=== PATIENT | female | born 1980 | race Caucasian/White ===

== ENCOUNTER 2019-09-27 14:55 | Inpatient (IN) | payer OTHER ==
[~2019-09-27] VITALS: Ht 160 cm; Wt 77.1 kg
[~2019-09-27 14:55] MED LIST: DSS100 PO; IBUP-2070 PO; PREN-64 PO
[2019-09-27 15:16] VITALS: BP 128/81
[2019-09-27] MEDS ORDERED: PREN-217 PO (15:20)
[2019-09-27] MEDS ORDERED: FERR-89 PO (15:20)
[2019-09-27] MEDS ORDERED: RINGERS SOLUTION,LACTATED 1,000 ML IV PRN (15:40)
[2019-09-27] MEDS ORDERED: OXYTOCIN 30 UNITS/LACT RINGERS 500 ML IV ONE ×2 (15:40→18:50)
[2019-09-27] MEDS ORDERED: LIDOCAINE/PF 1% 30 ML VIAL INJ PRN ×2 (15:45→19:00)
[2019-09-27] MEDS ORDERED: FentaNYL CITRATE-PF 100 MCG/2 ML VIAL IVP PRN (15:45)
[2019-09-27] MEDS ORDERED: CITRIC ACID/SODIUM CITRATE 30 ML SOLUTION UDCUP PO PRN (15:45)
[2019-09-27] MEDS ORDERED: METOCLOPRAMIDE HCL 5 MG/ML 2 ML VIAL IVP PRN (15:45)
[2019-09-27] MEDS ORDERED: METHYLERGONOVINE MALEATE 0.2 MG/ML VIAL IM PRN (15:45)
[2019-09-27] MEDS ORDERED: OXYTOCIN 30 UNITS/LACT RINGERS 500 ML IV PRN (16:14)
[2019-09-27 16:26] LABS: BASOPHILS % (AUTO) 0.6 % (0.0-2.0); EOSINOPHILS % (AUTO) 0.2 % (1.0-6.0); HEMATOCRIT 38.1 % (36-46); HEMOGLOBIN 12.3 g/dL (12.0-16.0); LYMPHOCYTES # (AUTO) 1.6 K/uL (1.0-4.8); LYMPHOCYTES % (AUTO) 14.4 % (22.0-44.0); MEAN CORPUSCULAR HEMOGLOBIN 27.4 pg (26.0-34.0); MEAN CORPUSCULAR HGB CONC 32.4 G/dL (31.0-37.0); MEAN CORPUSCULAR VOLUME 85 fL (80-100); MONOCYTES # (AUTO) 0.9 K/uL (0.1-1.0); MONOCYTES % (AUTO) 7.9 % (2.0-9.0); NEUTROPHILS # (AUTO) 8.6 K/uL (1.8-7.7); NEUTROPHILS % (AUTO) 76.9 % (40.0-70.0); PLATELET COUNT (AUTO)-OB 206 K/uL (150-450); RED BLOOD CELL COUNT(AUTO) 4.51 MIL/uL (4.00-5.20); RED CELL DISTRIBUTION WIDTH 16.1 % (11.5-14.5)
[2019-09-27] MEDS ORDERED: ROPIVACAINE HCL/PF 0.2% 100 ML ED PRN (16:44)
[2019-09-27] MEDS ORDERED: ROPIVACAINE HCL/PF 0.2% 100 ML ED ONE (16:56)
[2019-09-27] MEDS ORDERED: LIDOCAINE/PF 2% 5 ML VIAL ONE (16:57)
[2019-09-27] MEDS: RINGERS SOLUTION,LACTATED 1,000 ML IV SCH ×2 (18:06→18:10)
[2019-09-27] MEDS ORDERED: OxyCODONE HCL/ACETAMINOPHEN 5-325 MG TABLET PO PRN ×2 (19:00)
[2019-09-27] MEDS ORDERED: GLYCERIN/WITCH HAZEL LEAF 40 PADS JAR TP PRN (19:00)
[2019-09-27] MEDS ORDERED: LANOLIN 7 GM OINTMENT TP PRN (19:00)
[2019-09-27] MEDS ORDERED: BENZOCAINE 20%/MENTHOL 56 GM SPRAY CANISTER TP PRN (19:00)
[2019-09-27] MEDS ORDERED: MAGNESIUM HYDROXIDE SUSPENSION 30 ML UDCUP PO PRN (19:00)
[2019-09-27] MEDS ORDERED: OXYGEN THERAPY IH SCH (20:00)
[2019-09-27] MEDS: IBUPROFEN 800 MG TABLET PO PRN (22:23)
[2019-09-28] MEDS ORDERED: GUM MASTIC/STORAX/MSAL/ALCOHOL LIQUID 0.67 ML VIAL TP ONE (02:22)
[2019-09-28] MEDS: IBUPROFEN 800 MG TABLET PO PRN ×2 (04:32→10:53)
[2019-09-28 07:50] LABS: BASOPHILS % (AUTO) 0.5 % (0.0-2.0); EOSINOPHILS % (AUTO) 0.1 % (1.0-6.0); HEMATOCRIT 33.4 % (36-46); LYMPHOCYTES # (AUTO) 1.7 K/uL (1.0-4.8); LYMPHOCYTES % (AUTO) 12.2 % (22.0-44.0); MEAN CORPUSCULAR HEMOGLOBIN 28.4 pg (26.0-34.0); MEAN CORPUSCULAR VOLUME 86 fL (80-100); MONOCYTES # (AUTO) 1.1 K/uL (0.1-1.0); MONOCYTES % (AUTO) 7.6 % (2.0-9.0); NEUTROPHILS # (AUTO) 11.2 K/uL (1.8-7.7); NEUTROPHILS % (AUTO) 79.6 % (40.0-70.0); PLATELET COUNT (AUTO)-OB 178 K/uL (150-450); RED BLOOD CELL COUNT(AUTO) 3.87 MIL/uL (4.00-5.20); RED CELL DISTRIBUTION WIDTH 16.2 % (11.5-14.5)
[2019-09-28] MEDS ORDERED: IBUP-2071 PO (10:20)
[2019-09-28] MEDS ORDERED: DOCU-275 PO (10:21)
[2019-09-28] MEDS ORDERED: FERR-89 PO (10:22)
== END 2019-09-28 19:01 | disposition home or self-care (01) | DRG 807 ==
LOC: OBSVTOIN 14:55 → 4S 14:55
PROVIDERS: ADMIT Obstetrics & Gynecology; ATTEND Obstetrics & Gynecology
PROC: 10E0XZZ Delivery of Products of Conception, External Approach (ICD-10-PCS; principal; 2019-09-27)
PROC: 0HQ9XZZ Repair Perineum Skin, External Approach (ICD-10-PCS; 2019-09-27)
PROC: 3E0R3BZ Introduction of Anesthetic Agent into Spinal Canal, Percutaneous Approach (ICD-10-PCS; 2019-09-27)
PROC: 00HU33Z Insertion of Infusion Device into Spinal Canal, Percutaneous Approach (ICD-10-PCS; 2019-09-27)
DX: O70.0 First degree perineal laceration during delivery (principal); Z37.0 Single live birth; Z3A.38 38 weeks gestation of pregnancy
CPT/HCPCS: 86850; 86900; 86901; J2590; J2795; J3490; J7120